=== PATIENT | female | born 2000 | race African-American/Black ===

== ENCOUNTER 2020-06-22 18:28 | Emergency (ER) | payer BC, MEDICAID ==
[~2020-06-22] VITALS: Ht 170.2 cm; Wt 101.7 kg
[~2020-06-22 18:28] MED LIST: AMOX250S5 PO; AMPH20CA5 PO; CEFD300C3 PO; DEXAINTSOL PO; DEXT10TA9 PO; HYDR473S50 PO; POLY17PO6 PO; PRM5C60 TOP; SODI500S4 PO; TETRACAINESUCKERS MT
--- NOTE | 2020-06-22 19:20 | ED Psychosocial ---
General Chief Complaint: Psych/Social Disorder Stated Complaint: DEPRESSION Nursing Triage Note: PT AMB TO TRIAGE WITH COMPLAINT OF MOOD SWINGS AND DEPRESSIVE EPISODES. STATES IS CONCERNED MEDICATION IS CAUSING EPISODES. STATES QUIT TAKING AN ANTIDEPRESSANT IN JANUARY. STATES CALLED NEURO TODAY AFTER HAVING A DEPRESSIVE EPISODE AND CRYING UNCONTROLLABLY. Source: patient (SOMEWHAT VAGUE HISTORIAN) History of Present Illness Date Seen by Provider: Jun 22, 2020 Time Seen by Provider: 19:00 Initial Comments PT ARRIVES VIA POV FROM HOME--LIVES HERE WITH MOM STATES "MY DR TOLD ME TO COME HERE" --STATES SHE CALLED HER NEUROLOGIST AT , DR. CHRISTIAN FARMER, TODAY "AND SHE TOLD ME SHE COULDN'T DO ANYTHING OVER THE PHONE AND I NEEDED TO COME HERE" --STATES SHE SEES HER FOR NARCOLEPSY--PRESCRIBED TRAZADONE, ADDERALL AND VENLAFAXINE FOR IT. C/O ONGOING DEPRESSION FOR SEVERAL MONTHS--SYMPTOMS ARE NO DIFFERENT TODAY IN ANY WAY, AND HAS NEVER BEEN SEEN BY MENTAL HEALTH STATES "I CRY OUT OF NO WHERE AND I DON'T KNOW WHY" STATES "SOME TIME LAST MONTH I TOOK SOME PILLS--I DON'T KNOW WHAT THEY WERE --MAYBE IBUPROFEN-7 OR 8 OF THEM BUT I THREW THEM ALL UP--II THINK MAYBE I TRIED TO OVERDOSE" --STATES SHE HAS OCCASIONALLY HAD THOUGHTS OF HARMING HERSELF, BUT DOES NOT FEEL THAT WAY TODAY--THOSE THOUGHTS COME AND GO HAS NOT TRIED AT ANY OTHER TIME TO HARM HERSELF PCP: MARIAJOSE, ALSO IS A [employer] STUDENT Allergies and Home Medications Allergies Coded Allergies: No Known Drug Allergies (Unverified , 04/21/09) Home Medications Dextroamphetamine/Amphetamine 20 Mg Cap.er.24h, 20 MG PO DAILY, (Reported) Dextroamphetamine/Amphetamine 10 Mg Tablet, 10 MG PO for SLEEP, (Reported) TO KEEP FROM SLEEPING DURING DAYTIME Polyethylene Glycol 3350 17 Gm Powd.pack, 17 GM PO for CONSTIPATION, (Reported) Sodium Oxybate 500 Mg/1 Ml Solution, 3.5 MG PO HS, (Reported) MIX WITH 60ML OF WATER Sodium Oxybate 500 Mg/1 Ml Solution, 5.5 MG PO UD, (Reported) Review of Systems Constitutional: no symptoms reported EENTM: no symptoms reported Respiratory: no symptoms reported Cardiovascular: no symptoms reported Gastrointestinal: no symptoms reported Genitourinary: no symptoms reported : No LMP: Jun 21, 2020 Control/STD Prophylaxis: None Musculoskeletal: no symptoms reported Skin: no symptoms reported Psychiatric/Neurological: See HPI Past Cdgbber-Aeptjp-Awwulp Hx Past Med/Social Hx: Reviewed and Corrections made Patient Social History Alcohol Use: Denies Use Recreational Drug Use: No Smoking Status: Never a Smoker Recent Foreign Travel: No Contact w/Someone Who Travel: No Recent Infectious Disease Expo: No Recent Hopitalizations: No Immunizations Up To Date Tetanus Booster (TDap): Unknown Date of Influenza Vaccine: Jun 17, 2015 Seasonal Allergies Seasonal Allergies: No Past Medical History Surgeries: Yes Adenoidectomy, Tonsillectomy Respiratory: Yes (NARCOLEPSY) Sleep Apnea Cardiac: No Neurological: Yes (NARCOLEPSY) Reproductive Disorders: No Sexually Transmitted Disease: No Genitourinary: No Gastrointestinal: Yes Chronic Constipation Musculoskeletal: No Endocrine: No HEENT: Yes (S/P TONSILLECTOMY) Tonsilitis Cancer: No Psychosocial: Yes Sleep Difficulties, Depression Integumentary: No Blood Disorders: No Adverse Reaction/Blood Tranf: No Family Medical History Asthma G8 SISTER G8 SISTER No Pertinent Family Hx Physical Exam Vital Signs - First Documented 06/22/20 18:36 Temp 37.0 Pulse 90 Resp 17 B/P (MAP) 112/71 (85) Pulse Ox 98 O2 Delivery Room Air Capillary Refill : Less Than 3 Seconds Height, Weight, BMI Height: 5'8.00" Weight: 173lbs. 0.0oz. [id number]; 35.00 BMI Method:Stated General Appearance: WD/WN, no apparent distress, other (SMILING, DOES NOT APPEAR TO BE IN ANY DISTRESS) HEENT: PERRL/EOMI Neck: normal inspection Respiratory: normal breath sounds, no respiratory distress, no accessory muscle use Cardiovascular: regular rate, rhythm, no murmur Gastrointestinal: non tender, soft Extremities: normal inspection Neurologic/Psychiatric: manager food II-XII nml as tested, no motor/sensory deficits, alert, normal mood/affect, oriented x 3 Appearance/Memory: appropriate appearance, appropriate insight, neat, no memory impairment Behavior/Eye Contact: cooperative, good eye contact, normal speech Thoughts/Hallucinations: normal thought pattern, no apparent hallucination, other (NO SUICIDAL OR HOMICIDAL THOUGHTS AT THIS TIME) Skin: normal color, warm/dry Progress/Results/Core Measures Results/Orders Lab Results Laboratory Tests Test 06/22/20 19:25 06/22/20 20:24 Range/Units White Blood Count 10.8 4.3-11.0 10^3/uL Red Blood Count 5.06 4.35-5.85 10^6/uL Hemoglobin 11.7 11.5-16.0 G/DL Hematocrit 37 35-52 % Mean Corpuscular Volume 74 L 80-99 FL Mean Corpuscular Hemoglobin 23 L 25-34 PG Mean Corpuscular Hemoglobin Concent 31 L 32-36 G/DL Red Cell Distribution Width 14.7 H 10.0-14.5 % Platelet Count 356 130-400 10^3/uL Mean Platelet Volume 11.1 H 7.4-10.4 FL Neutrophils (%) (Auto) 74 42-75 % Lymphocytes (%) (Auto) 19 12-44 % Monocytes (%) (Auto) 5 0-12 % Eosinophils (%) (Auto) 1 0-10 % Basophils (%) (Auto) 0 0-10 % Neutrophils # (Auto) 8.0 H 1.8-7.8 X 10^3 Lymphocytes # (Auto) 2.1 1.0-4.0 X 10^3 Monocytes # (Auto) 0.6 0.0-1.0 X 10^3 Eosinophils # (Auto) 0.1 0.0-0.3 10^3/uL Basophils # (Auto) 0.0 0.0-0.1 10^3/uL Sodium Level 139 135-145 MMOL/L Potassium Level 3.5 L 3.6-5.0 MMOL/L Chloride Level 105 98-107 MMOL/L Carbon Dioxide Level 23 21-32 MMOL/L Anion Gap 11 5-14 MMOL/L Blood Urea Nitrogen 7 7-18 MG/DL Creatinine 0.94 0.60-1.30 MG/DL Estimat Glomerular Filtration Rate > 60 BUN/Creatinine Ratio 7 Glucose Level 73 70-105 MG/DL Calcium Level 9.8 8.5-10.1 MG/DL Corrected Calcium 8.5-10.1 MG/DL Total Bilirubin 0.5 0.1-1.0 MG/DL Aspartate Amino Transf (AST/SGOT) 17 5-34 U/L Alanine Aminotransferase (ALT/SGPT) 11 0-55 U/L Alkaline Phosphatase 65 40-136 U/L Total Protein 7.9 6.4-8.2 GM/DL Albumin 4.6 H 3.2-4.5 GM/DL TSH [place] Testing 3.90 0.35-4.94 UIU/ML Salicylates Level < 5.0 L 5.0-20.0 MG/DL Acetaminophen Level < 10 L 10-30 UG/ML Serum Alcohol < 10 <10 MG/DL Urine Color YELLOW Urine Clarity CLEAR Urine pH 6.0 5-9 Urine Specific Tye 1.015 L 1.016-1.022 Urine Protein NEGATIVE NEGATIVE Urine Glucose (UA) NEGATIVE NEGATIVE Urine Ketones NEGATIVE NEGATIVE Urine Nitrite NEGATIVE NEGATIVE Urine Bilirubin NEGATIVE NEGATIVE Urine Urobilinogen 0.2 < = 1.0 MG/DL Urine Leukocyte Esterase NEGATIVE NEGATIVE Urine RBC (Auto) 3+ H NEGATIVE Urine RBC 50-100 H /HPF Urine WBC 0-2 /HPF Urine Squamous Epithelial Cells 2-5 /HPF Urine Crystals NONE /LPF Urine Bacteria NEGATIVE /HPF Urine Casts NONE /LPF Urine Mucus NEGATIVE /LPF Urine Culture Indicated NO Urine Test NEGATIVE NEGATIVE Urine Opiates Screen NEGATIVE NEGATIVE Urine Oxycodone Screen NEGATIVE NEGATIVE Urine Methadone Screen NEGATIVE NEGATIVE Urine Propoxyphene Screen NEGATIVE NEGATIVE Urine Barbiturates Screen NEGATIVE NEGATIVE Ur Tricyclic Antidepressants Screen NEGATIVE NEGATIVE Urine Phencyclidine Screen NEGATIVE NEGATIVE Urine Amphetamines Screen POSITIVE H NEGATIVE Urine Methamphetamines Screen NEGATIVE NEGATIVE Urine Benzodiazepines Screen NEGATIVE NEGATIVE Urine Cocaine Screen NEGATIVE NEGATIVE Urine Cannabinoids Screen NEGATIVE NEGATIVE My Orders Orders - ISA ELENA DO Urinalysis (06/22/20 19:12) Thyroid Analyzer (06/22/20 19:12) Drug Screen Stat (Urine) (06/22/20 19:12) Cbc With Automated Diff (06/22/20 19:12) Comprehensive Metabolic Panel (06/22/20 19:12) Alcohol (06/22/20 19:12) Acetaminophen (06/22/20 19:12) Salicylate (06/22/20 19:12) Ekg Tracing (06/22/20 19:12) Hcg,Qualitative Urine (06/22/20 19:12) Vital Signs/I&O 06/22/20 18:36 Temp 37.0 Pulse 90 Resp 17 B/P (MAP) 112/71 (85) Pulse Ox 98 O2 Delivery Room Air Blood Pressure Mean: 85 Departure Impression Primary Impression: Depression Disposition: 01 HOME, SELF-CARE Condition: Stable Departure-Patient Inst. Referrals: CALEB PERRY MD [facility] [place] Instructions: Depression, Adult (DC) Add. Discharge Instructions: CONTINUE YOUR MEDICATIONS PRESCRIBED FOLLOW UP WITH MENTAL HEALTH PROVIDER OF CHOICE--[facility], [facility] [place] [facility]--CALL ON TUESDAY MORNING TO SCHEDULE A PPOINTMENT All discharge instructions reviewed with patient and/or family. Voiced understanding. ISA ELENA DO Jun 22, 2020 19:20
[2020-06-22 19:35] LABS: BASOPHILS % (AUTO) 0 % (0-10); EOSINOPHILS # (AUTO) 0.1 10^3/uL (0.0-0.3); EOSINOPHILS % (AUTO) 1 % (0-10); HEMATOCRIT 37 % (35-52); HEMOGLOBIN 11.7 G/DL (11.5-16.0); LYMPHOCYTES # (AUTO) 2.1 X 10^3 (1.0-4.0); LYMPHOCYTES % (AUTO) 19 % (12-44); MEAN CORPUSCULAR HEMOGLOBIN 23 PG (25-34); MEAN CORPUSCULAR HGB CONC 31 G/DL (32-36); MEAN CORPUSCULAR VOLUME 74 FL (80-99); MEAN PLATELET VOLUME 11.1 FL (7.4-10.4); MONOCYTES # (AUTO) 0.6 X 10^3 (0.0-1.0); MONOCYTES % (AUTO) 5 % (0-12); NEUTROPHILS % (AUTO) 74 % (42-75); PLATELET COUNT 356 10^3/uL (130-400); WHITE BLOOD COUNT 10.8 10^3/uL (4.3-11.0)
[2020-06-22 19:51] LABS: ALANINE AMINOTRANSFERASE 11 U/L (0-55); ALBUMIN 4.6 GM/DL (3.2-4.5); ALKALINE PHOSPHATASE 65 U/L (40-136); BILIRUBIN,TOTAL 0.5 MG/DL (0.1-1.0); BUN/CREATININE RATIO 7; CALCIUM 9.8 MG/DL (8.5-10.1); CARBON DIOXIDE 23 MMOL/L (21-32); CHLORIDE 105 MMOL/L (98-107); CREATININE SERUM 0.94 MG/DL (0.60-1.30); GFR ESTIMATED > 60; GLUCOSE 73 MG/DL (70-105); POTASSIUM 3.5 MMOL/L (3.6-5.0); SALICYLATE < 5.0 MG/DL (5.0-20.0); SODIUM 139 MMOL/L (135-145); TOTAL PROTEIN 7.9 GM/DL (6.4-8.2)
[2020-06-22 19:57] LABS: ACETAMINOPHEN < 10 UG/ML (10-30)
[2020-06-22 20:34] LABS: BILIRUBIN,URINE NEGATIVE (NEGATIVE); CLARITY,URINE CLEAR; COLOR,URINE YELLOW; GLUCOSE, URINE (UA) NEGATIVE (NEGATIVE); KETONES,URINE NEGATIVE (NEGATIVE); LEUKOCYTE ESTERASE ,URINE NEGATIVE (NEGATIVE); NITRITE,URINE NEGATIVE (NEGATIVE); PROTEIN,URINE NEGATIVE (NEGATIVE)
[2020-06-22 20:44] LABS: HCG,QUALITATIVE URINE NEGATIVE (NEGATIVE)
[2020-06-22 20:46] LABS: BACTERIA,URINE NEGATIVE /HPF; RBC,URINE 50-100 /HPF; WBC,URINE 0-2 /HPF
[2020-06-22 20:50] LABS: AMPHETAMINE SCREEN, URINE POSITIVE (NEGATIVE); BARBITURATE SCREEN URINE NEGATIVE (NEGATIVE); BENZODIAZEPINES SCREEN URINE NEGATIVE (NEGATIVE); CANNABINOID SCREEN, URINE NEGATIVE (NEGATIVE); COCAINE SCREEN URINE NEGATIVE (NEGATIVE); METHADONE STAT NEGATIVE (NEGATIVE); METHAMPHETAMINE SCREEN URINE S NEGATIVE (NEGATIVE); OPIATE SCREEN URINE NEGATIVE (NEGATIVE); OXYCODONE STAT NEGATIVE (NEGATIVE); PROPOXYPHENE STAT NEGATIVE (NEGATIVE); TRICYCLIC ANTIDEPRESSANTS SCRE NEGATIVE (NEGATIVE)
[2020-06-22 21:07] VITALS: BP 155/76
== END 2020-06-22 21:07 | disposition home or self-care (01) ==
LOC: EDUNIT# 18:28 → ER 18:30
DX: F32.9 Major depressive disorder, single episode, unspecified (principal); G47.419 Narcolepsy without cataplexy
CPT/HCPCS: 80053; 80306; 81000; 84443; 84703; 85025; 93005; 99284; G0480 ×3; 36415; 80320; 80329

== ENCOUNTER 2022-01-29 17:52 | Emergency (ER) | payer SELFPAY ==
[~2022-01-29] VITALS: Ht 172 cm; Wt 119.7 kg
--- NOTE | 2022-01-29 18:27 | ED GU-Female ---
General Chief Complaint: - Reproductive Stated Complaint: HEAVY BLEEDING, SEVERE CRAMPS Source: patient Exam Limitations: no limitations History of Present Illness Date Seen by Provider: Jan 29, 2022 Time Seen by Provider: 18:20 Initial Comments Patient is a 21-year-old female who presents to the emergency department with a chief complaint of heavy vaginal bleeding, cramping. She states she has had this off and on over the course of the last 3 months. She is followed at [facility]. She has had multiple changes to her oral contraceptive pills over the last year. Most recently she was switched in September and when her bleeding became heavy and irregular they took her off her control. Babar ashby has had 1 visit back to the clinic with just a urinalysis performed as reported by her. She continues to have heavy bleeding. She occasionally takes dgrs-ugu-kfbqhka "menstrual relief" which contains acetaminophen. She states she has not been sexually active in many months. She denies any abnormal vaginal discharge. No burning with urination. No increased frequency or urgen cy. She denies blood in her stool. She has a history of narcolepsy but is not currently on medications for this. Denies any history of diabetes or thyroid disease. She states that she feels a little lightheaded and dizzy when she changes position. She does not smoke or drink. Currently has some suprapubic abdominal cramping. Has only had 1 prior pelvic exam and that has been about a year ago. Nothing abnormal reported. Family history of endometriosis. All other review of systems reviewed and negative except as stated. Timing/Duration: constant Severity/Quality: moderate, cramping Location: suprapubic Radiation: none Activities at Onset: none Prior Genitourinary Problems: similar symptoms Sexual [place] History: not active Associated Symptoms: abdominal pain Allergies and Home Medications Allergies Coded Allergies: No Known Drug Allergies (Unverified , 04/21/09) Patient Home Medication List Home Medication List Reviewed: Yes Dextroamphetamine/Amphetamine (Adderall Xr 20 mg Capsule) 20 Mg Cap.er.24h, 20 MG PO DAILY, (Reported) Entered as Reported by: ERIC FRANZ on 07/04/16 09 Dextroamphetamine/Amphetamine (Adderall 10 mg Tablet) 10 Mg Tablet, 10 MG PO for SLEEP, (Reported) Entered as Reported by: ERIC FRANZ on 07/04/16910 Naproxen (Naprosyn) 500 Mg Tablet, 500 MG PO BID Prescribed by: VEDA WATTS on 01/29/221922 Polyethylene Glycol 3350 (Miralax) 17 Gm Powd.pack, 17 GM PO for CONSTIPATION, (Reported) Entered as Reported by: ERIC FRANZ on 07/04/16910 Sodium Oxybate (Xyrem) 500 Mg/1 Ml Solution, 3.5 MG PO HS, (Reported) Entered as Reported by: ERIC FRANZ on 07/04/16910 Sodium Oxybate (Xyrem) 500 Mg/1 Ml Solution, 5.5 MG PO UD, (Reported) Entered as Reported by: ERIC FRANZ on 07/04/16910 Review of Systems Review of Systems Constitutional: see HPI EENTM: no symptoms reported Respiratory: no symptoms reported Gastrointestinal: abdominal pain Genitourinary: other (vaginal bleeding) : No Musculoskeletal: no symptoms reported Skin: no symptoms reported Psychiatric/Neurological: Headache, Other (dizziness, lightheaded) All Other Systemes Reviewed Negative Unless Noted: Yes Past Iwlmfbm-Uddhtu-Ibnsio Hx Patient Social History Tobacco Use?: No Substance use?: No Alcohol Use?: No Pt feels they are or have been: No Immunizations Up To Date Tetanus Booster (TDap): Unknown Seasonal Allergies Seasonal Allergies: No Past Medical History Surgery/Hospitalization HX: PMH: NARCOLEPSY Surgeries: Yes Adenoidectomy, Tonsillectomy Respiratory: Yes (NARCOLEPSY) Sleep Apnea Cardiac: No Neurological: Yes (NARCOLEPSY) Reproductive Disorders: No Sexually Transmitted Disease: No Genitourinary: No Gastrointestinal: Yes Chronic Constipation Musculoskeletal: No Endocrine: No HEENT: Yes (S/P TONSILLECTOMY) Tonsilitis Cancer: No Psychosocial: Yes Sleep Difficulties, Depression Integumentary: No Blood Disorders: No Adverse Reaction/Blood Tranf: No Family Medical History Asthma G8 SISTER G8 SISTER No Pertinent Family Hx Physical Exam Vital Signs Vital Signs - First Documented 01/29/22 18:13 Temp 36.5 Pulse 102 Resp 18 B/P (MAP) 131/73 (92) Pulse Ox 98 Capillary Refill : Height, Weight, BMI Height: 5'8.00" Weight: 173lbs. 0.0oz. [id number]; 35.00 BMI Method:Stated General Appearance: WD/WN, no apparent distress HEENT: PERRL/EOMI, normal ENT inspection Cardiovascular: regular rate, rhythm Respiratory: lungs clear, normal breath sounds, no respiratory distress, no accessory muscle use Gastrointestinal: normal bowel sounds, soft, tenderness (mild suprapubic tenderness) Extremities: normal range of motion, normal inspection Neurologic/Psychiatric: alert, normal mood/affect, oriented x 3 Skin: normal color, warm/dry Progress/Results/Core Measures Suspected Sepsis SIRS Temperature: Pulse: Respiratory Rate: Laboratory Tests 01/29/22 18:38: White Blood Count 9.0 Blood Pressure / Mean: Laboratory Tests 01/29/22 18:38: Platelet Count 358 Results/Orders Lab Results Laboratory Tests Test 01/29/22 18:37 01/29/22 18:38 Range/Units Glucometer 92 70-110 MG/DL White Blood Count 9.0 4.3-11.0 10^3/uL Red Blood Count 4.69 3.80-5.11 10^6/uL Hemoglobin 10.2 L 11.5-16.0 g/dL Hematocrit 35 35-52 % Mean Corpuscular Volume 74 L 80-99 fL Mean Corpuscular Hemoglobin 22 L 25-34 pg Mean Corpuscular Hemoglobin Concent 29 L 32-36 g/dL Red Cell Distribution Width 16.8 H 10.0-14.5 % Platelet Count 358 130-400 10^3/uL Mean Platelet Volume 10.2 9.0-12.2 fL Immature Granulocyte % (Auto) 0 % Neutrophils (%) (Auto) 64 42-75 % Lymphocytes (%) (Auto) 27 12-44 % Monocytes (%) (Auto) 6 0-12 % Eosinophils (%) (Auto) 2 0-10 % Basophils (%) (Auto) 1 0-10 % Neutrophils # (Auto) 5.8 1.8-7.8 10^3/uL Lymphocytes # (Auto) 2.4 1.0-4.0 10^3/uL Monocytes # (Auto) 0.6 0.0-1.0 10^3/uL Eosinophils # (Auto) 0.2 0.0-0.3 10^3/uL Basophils # (Auto) 0.1 0.0-0.1 10^3/uL Immature Granulocyte # (Auto) 0.0 0.0-0.1 10^3/uL My Orders Orders - VEDA WATTS MD Cbc With Automated Diff (01/29/22 18:36) Accucheck Stat ONCE (01/29/22 18:36) Naproxen Tablet (Naprosyn Tablet) (01/29/22 19:32) Vital Signs/I&O 01/29/22 18:13 Temp 36.5 Pulse 102 Resp 18 B/P (MAP) 131/73 (92) Pulse Ox 98 Capillary Refill : Progress Note : Time: 19:39 Progress Note Patient reevaluated after CBC and Accu-Chek. Her hemoglobin is slightly low at 10. We talked about this and the need possibly for some iron supplementation. She has been unable to produce a urine without any significant complaints for urinary tract infection I think it is okay to wait and have her repeat this in the clinic. She is adamant that she is not sexually active therefore I do not think a test is necessary at this time. I told her that I would go ahead and start her on some naproxen. She needs to be on an iron supplement. She is comfortable following up with [facility]. We talked about return precautions, she verbalized understanding. All questions are sought and answered. Departure Impression Primary Impression: Dysfunctional uterine bleeding Disposition: HOME, SELF-CARE Condition: Stable Departure-Patient Inst. Decision time for Depature: 17:21 Referrals: [facility]/JOSE LUIS NO,LOCAL PHYSICIAN (PCP) Primary Care Physician Patient Instructions: Heavy Periods ED Add. Discharge Instructions: Drink plenty of fluids to stay well-hydrated. You can look for an lifu-vyl-nthbyrh iron supplement called "Vitron C"; this contains vitamin C as well as iron. It does not cause like other iron supplements May. Take the naproxen twice daily with food. This should slow down your bleeding and also significantly help with cramping. Call Tuesday for a follow-up with [facility]. Return to the emergency department for any passing out spells, heavy bleeding with increasing abdominal pain, fever or other emergent concerning symptoms Scripts Naproxen (Naprosyn) 500 Mg Tablet 500 MG PO BID, #30 TAB 0 Refills take with food Prov: VEDA WATTS MD 01/29/22 VEDA WATTS MD Jan 29, 2022 18:26
[2022-01-29 18:46] LABS: BASOPHILS # (AUTO) 0.1 10^3/uL (0.0-0.1); BASOPHILS % (AUTO) 1 % (0-10); EOSINOPHILS # (AUTO) 0.2 10^3/uL (0.0-0.3); EOSINOPHILS % (AUTO) 2 % (0-10); HEMATOCRIT 35 % (35-52); HEMOGLOBIN 10.2 g/dL (11.5-16.0); LYMPHOCYTES # (AUTO) 2.4 10^3/uL (1.0-4.0); LYMPHOCYTES % (AUTO) 27 % (12-44); MEAN CORPUSCULAR HEMOGLOBIN 22 pg (25-34); MEAN CORPUSCULAR HGB CONC 29 g/dL (32-36); MEAN CORPUSCULAR VOLUME 74 fL (80-99); MEAN PLATELET VOLUME 10.2 fL (9.0-12.2); MONOCYTES # (AUTO) 0.6 10^3/uL (0.0-1.0); MONOCYTES % (AUTO) 6 % (0-12); NEUTROPHILS # (AUTO) 5.8 10^3/uL (1.8-7.8); NEUTROPHILS % (AUTO) 64 % (42-75); PLATELET COUNT 358 10^3/uL (130-400)
[2022-01-29] MEDS ORDERED: NAPR-1071 PO (19:23)
[2022-01-29] MEDS ORDERED: NAPROXEN 250 MG (NAPROSYN) TABLET PO STA (19:32)
[2022-01-29 19:45] VITALS: BP 127/78
== END 2022-01-29 19:47 | disposition home or self-care (01) ==
LOC: EDUNIT# 17:52 → ER 17:56
DX: N93.8 Other specified abnormal uterine and vaginal bleeding (principal)
CPT/HCPCS: 36415; 82947; 85025

== ENCOUNTER → 2022-08-17 | Outpatient (CLI) | payer OTHER ==
[~2022-08-17] MED LIST changes: +NAPR-1071 PO
== END ==
LOC: LAB 15:26
DX: G47.411 Narcolepsy with cataplexy (principal); F51.04 Psychophysiologic insomnia
CPT/HCPCS: 36415; 83735

== ENCOUNTER 2022-08-22 21:09 | Emergency (ER) | payer OTHER ==
--- NOTE | 2022-08-22 22:58 | ED Chest Pain ---
General Chief Complaint: Chest Wall Stated Complaint: CHEST PAIN Nursing Triage Note: PT ARRIVAL TO ER VIA PRIVATE VEHICLE WITH COMPLAINT OF INTERMITTENT CHEST PAIN X2 WEEKS. PAIN IS A SHARP PAIN WHEN PRESENT. PAIN AT WORST 8/10. PAIN CURRENTLY 3/10. PT DENIES NAUSA, VOMITING, DIAPHORESIS WITH PAIN. PAIN IS WORSE WITH PALPATION AND MOVEMENT. History of Present Illness Date Seen by Provider: Aug 22, 2022 Time Seen by Provider: 22:45 Initial Comments Patient is a 22-year-old female who presents to the emergency department with approximately 2 weeks of central chest pain. She states the pain seemed to have worsened over the last 24 to 48 hours prompting presentation to the emergency department. Patient states the pain is worse with certain positions and the area is tender to palpation. She states she feels that she cannot get a full breath but denies any diaphoresis or dependent edema. Denies any history of smoking. Denies any history of cardiopulmonary disease. States she is c urrently on her menses. Allergies and Home Medications Allergies Coded Allergies: No Known Drug Allergies (Unverified , 04/21/09) Patient Home Medication List Home Medication List Reviewed: Yes Dextroamphetamine/Amphetamine (Adderall Xr 20 mg Capsule) 20 Mg Cap.er.24h, 20 MG PO DAILY, (Reported) Entered as Reported by: ERIC FRANZ on 07/04/16910 Dextroamphetamine/Amphetamine (Adderall 10 mg Tablet) 10 Mg Tablet, 10 MG PO for SLEEP, (Reported) Entered as Reported by: ERIC FRANZ on 07/04/16910 Naproxen (Naprosyn) 500 Mg Tablet, 500 MG PO BID Prescribed by: VEDA WATTS on 01/29/221922 Polyethylene Glycol 3350 (Miralax) 17 Gm Powd.pack, 17 GM PO for CONSTIPATION, (Reported) Entered as Reported by: ERIC FRANZ on 07/04/16910 Sodium Oxybate (Xyrem) 500 Mg/1 Ml Solution, 3.5 MG PO HS, (Reported) Entered as Reported by: ERIC FRANZ on 07/04/16910 Sodium Oxybate (Xyrem) 500 Mg/1 Ml Solution, 5.5 MG PO UD, (Reported) Entered as Reported by: ERIC FRANZ on 07/04/16910 Review of Systems Review of Systems Constitutional: no symptoms reported EENTM: No Symptoms Reported Respiratory: See HPI Cardiovascular: See HPI Gastrointestinal: No Symptoms Reported Genitourinary: No Symptoms Reported Musculoskeletal: no symptoms reported Skin: no symptoms reported Psychiatric/Neurological: No Symptoms Reported Past Rjfuvfg-Jxkvpj-Eyfkar Hx Patient Social History Tobacco Use?: No Use of E-Cig and/or Vaping dev: No Substance use?: No Alcohol Use?: No Pt feels they are or have been: No Immunizations Up To Date Tetanus Booster (TDap): Unknown Influenza Vaccine Up-to-Date: No; Not Current First/Initial COVID19 Vaccinat: 11/06 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: [employer] Seasonal Allergies Seasonal Allergies: No Past Medical History Surgery/Hospitalization HX: PMH: NARCOLEPSY Surgeries: Yes Adenoidectomy, Tonsillectomy Respiratory: Yes (NARCOLEPSY) Sleep Apnea Cardiac: No Neurological: Yes (NARCOLEPSY) Reproductive Disorders: No Sexually Transmitted Disease: No Genitourinary: No Gastrointestinal: Yes Chronic Constipation Musculoskeletal: No Endocrine: No HEENT: Yes (S/P TONSILLECTOMY) Tonsilitis Cancer: No Psychosocial: Yes Sleep Difficulties, Depression Integumentary: No Blood Disorders: No Adverse Reaction/Blood Tranf: No Family Medical History Asthma G8 SISTER G8 SISTER No Pertinent Family Hx Physical Exam Vital Signs Vital Signs - First Documented 08/22/22 21:48 Temp 36.6 Pulse 95 Resp 18 B/P (MAP) 139/95 (110) Pulse Ox 98 O2 Delivery Room Air Capillary Refill : Less Than 3 Seconds Height, Weight, BMI Height: 5'8.00" Weight: 173lbs. 0.0oz. 78.793229pw; 40.00 BMI Method:Stated General Appearance: No Apparent Distress, WD/WN HEENT: PERRL/EOMI, TMs Normal, Normal ENT Inspection, Pharynx Normal Neck: Full Range of Motion, Normal Inspection Respiratory: Lungs Clear, Normal Breath Sounds, No Accessory Muscle Use Cardiovascular: Regular Rate, Rhythm Extremity: Normal Capillary Refill, Normal Inspection Neurologic/Psychiatric: Alert, Oriented x3, No Motor/Sensory Deficits, Normal Mood/Affect Skin: Normal Color, Warm/Dry Other comments Right costochondral cartilage tenderness to palpation noted Progress/Results/Core Measures Results/Orders My Orders Orders - ADAN CALABRESE APRN Ekg Tracing (08/22/22 22:40) Chest 1 View, Ap/Pa Only (08/22/22 22:44) Ibuprofen Tablet (Motrin Tablet) (08/22/22 23:30) Medications Given in ED Current Medications Medications Dose Ordered Sig/Farhana Route Start Time Stop Time Status Last Admin Dose Admin Ibuprofen 600 mg ONCE ONCE PO 08/22/22 23:30 08/22/22 23:31 DC 08/22/22 23:52 600 MG Vital Signs/I&O 08/22/22 21:48 Temp 36.6 Pulse 95 Resp 18 B/P (MAP) 139/95 (110) Pulse Ox 98 O2 Delivery Room Air Blood Pressure Mean: 110 Progress Progress Note : Progress Note Patient is nontoxic and well-hydrated on exam. No adventitious lung sounds or increased work of breathing noted. Vital signs reassuring. Patient is awake alert and oriented. She answers all questions appropriately. EKG without acute ischemic change or arrhythmia. Chest x-ray acutely negative on my wet read. Will discharge home with recommendations for supportive care and follow-up with PCP. Return precautions for urgent symptomology discussed. Patient verbalized understanding. EKG : EKG Time: 22:47 Rate: 89 Rhythm: Normal Sinus Intervals: Normal ECG Impression: Normal Departure Impression Primary Impression: Costochondritis Disposition: 01 HOME, SELF-CARE Condition: Stable Departure-Patient Inst. Decision time for Depature: 23:50 Referrals: NO,LOCAL PHYSICIAN (PCP/Family) Primary Care Physician Patient Instructions: Costochondritis (DC) Scripts Ibuprofen (Ibuprofen) 800 Mg Tablet 800 MG PO Q8H PRN for PAIN-MILD for 5 Days, #15 TAB 0 Refills Prov: ADAN CALABRESE APRN 08/22/22 ADAN CALABRESE APRN Aug 22, 2022 22:58
[2022-08-22] MEDS ORDERED: IBUPROFEN 600 MG (MOTRIN) TAB PO ONE (23:30)
[2022-08-22] MEDS ORDERED: IBUP-1780 PO (23:55)
[2022-08-22 23:58] VITALS: BP 121/90
--- NOTE | 2022-08-23 06:22 | Diagnostic Imaging Report ---
EXAMINATION: Chest 1 view HISTORY: chest pain COMPARISON: None available. FINDINGS: Heart size and pulmonary vasculature are normal. The lungs are clear without consolidation, pleural effusion, or pneumothorax. The osseous structures are intact. IMPRESSION: 1. No acute radiographic abnormality in the chest. Dictated by: Dictated on workstation # [id number]
== END 2022-08-23 00:14 | disposition home or self-care (01) ==
LOC: EDUNIT# 21:09 → ER 21:11
DX: M94.0 Chondrocostal junction syndrome [Tietze] (principal); Z28.311 Partially vaccinated for COVID-19
CPT/HCPCS: 71045; 93005

== ENCOUNTER 2023-01-05 18:11 | Emergency (ER) | payer OTHER ==
[~2023-01-05] VITALS: Ht 173 cm; Wt 134.3 kg
[~2023-01-05 18:11] MED LIST changes: +IBUP-1780 PO
[2023-01-05 18:41] LABS: BASOPHILS # (AUTO) 0.1 10^3/uL (0.0-0.1); BASOPHILS % (AUTO) 1 % (0-10); EOSINOPHILS # (AUTO) 0.3 10^3/uL (0.0-0.3); EOSINOPHILS % (AUTO) 3 % (0-10); HEMATOCRIT 31 % (35-52); LYMPHOCYTES # (AUTO) 2.5 10^3/uL (1.0-4.0); LYMPHOCYTES % (AUTO) 26 % (12-44); MEAN CORPUSCULAR HEMOGLOBIN 20 pg (25-34); MEAN CORPUSCULAR HGB CONC 29 g/dL (32-36); MEAN CORPUSCULAR VOLUME 69 fL (80-99); MEAN PLATELET VOLUME 10.1 fL (9.0-12.2); MONOCYTES # (AUTO) 0.7 10^3/uL (0.0-1.0); MONOCYTES % (AUTO) 7 % (0-12); NEUTROPHILS # (AUTO) 6.1 10^3/uL (1.8-7.8); NEUTROPHILS % (AUTO) 63 % (42-75); PLATELET COUNT 378 10^3/uL (130-400); WHITE BLOOD COUNT 9.7 10^3/uL (4.3-11.0)
--- NOTE | 2023-01-05 18:50 | ED General ---
General Chief Complaint: General Problems/Pain Stated Complaint: ABNORMAL MENSTRUAL CYCLE Nursing Triage Note: Patient ambulatory to ER w c/o abnormal bleeding with large clots. Bleeding started Dec 02. Patient states regular period lasts about 5 days. Changing pad every hr. Patient states cramps are real bad. takes tylenol and ibuprofen for pain Source of Information: Patient Exam Limitations: No Limitations History of Present Illness Date Seen by Provider: Jan 05, 2023 Time Seen by Provider: 18:48 Initial Comments Patient is a 22-year-old female with a history of narcolepsy cataplexy, obstructive sleep apnea, abnormal menstrual cycles who presents ED with heavy vaginal bleeding. Symptoms started 3 weeks ago. Started with bright red blood. Started passing clots and now return to bright red blood. She states she goes through 8-10 pads a day. Heavier vaginal bleeding over the past 2 days. history of irregular menstrual cycle. She has been seen by [facility] and had a unremarkable ultrasound few months ago accordign to family. She states she is scheduled follow-up with a traveling nurse on January 18. She reports lower abdominal cramping that is intermittent but worse over the past 2 or 3 days. Denies of any urinary symptoms, vaginal discharge or concern for sexual transmitted infection. She denies fever, vomiting, diarrhea, current chest pain, shortness of breath, headache, dizziness. Patient denies history of hypothyroidism, PCOS, anticoagulant loose, blood disorder. Patient denies taking thing for pain. Has been on control in the past without much improvement. Patient denies dizziness, weakness, pale skin, short of breath Allergies and Home Medications Allergies Coded Allergies: No Known Drug Allergies (Unverified , 04/21/09) Patient Home Medication List Home Medication List Reviewed: Yes Dextroamphetamine/Amphetamine (Adderall Xr 20 mg Capsule) 20 Mg Cap.er.24h, 20 MG PO DAILY, (Reported) Entered as Reported by: ERIC FRANZ on 07/04/16 0911 Dextroamphetamine/Amphetamine (Adderall 10 mg Tablet) 10 Mg Tablet, 10 MG PO for SLEEP, (Reported) Entered as Reported by: ERIC FRANZ on 07/04/16 09 Ibuprofen (Ibuprofen) 800 Mg Tablet, 800 MG PO Q8H PRN for PAIN-MILD Prescribed by: Linden Menendez on 08/22/22 6266 Medroxyprogesterone Acetate (Medroxyprogesterone Acetate) 10 Mg Tablet, 10 MG PO DAILY Prescribed by: REEMA JIM on 01/05/232002 Metronidazole (Metronidazole) 500 Mg Tablet, 500 MG PO BID Prescribed by: REEMA JIM on 01/05/232036 Naproxen (Naprosyn) 500 Mg Tablet, 500 MG PO BID Prescribed by: VEDA WATTS on 01/29/221922 Polyethylene Glycol 3350 (Miralax) 17 Gm Powd.pack, 17 GM PO for CONSTIPATION, (Reported) Entered as Reported by: ERIC FRANZ on 07/04/16910 Sodium Oxybate (Xyrem) 500 Mg/1 Ml Solution, 3.5 MG PO HS, (Reported) Entered as Reported by: ERIC FRANZ on 07/04/16910 Sodium Oxybate (Xyrem) 500 Mg/1 Ml Solution, 5.5 MG PO UD, (Reported) Entered as Reported by: ERIC FRANZ on 07/04/16910 Review of Systems Review of Systems Constitutional: No chills, No diaphoresis, No fever, No malaise, No weakness Respiratory: No cough, No orthopnea, No short of breath Cardiovascular: No chest pain, No edema Gastrointestinal: abdominal pain; No diarrhea, No nausea, No vomiting Genitourinary: No decreased output, No discharge, No dysuria, No frequency; other (Vaginal discharge) Musculoskeletal: No back pain, No joint pain Skin: No change in color Past Ikhvdbk-Acmzzj-Qmloqc Hx Patient Social History Tobacco Use?: No Substance use?: No Alcohol Use?: No Immunizations Up To Date Tetanus Booster (TDap): Unknown First/Initial COVID19 Vaccinat: unknown COVID19 Vaccine [place]: Zuki Seasonal Allergies Seasonal Allergies: No Past Medical History Surgery/Hospitalization HX: PMH: NARCOLEPSY Surgeries: Yes Adenoidectomy, Tonsillectomy Respiratory: Yes (NARCOLEPSY) Sleep Apnea Cardiac: No Neurological: Yes (NARCOLEPSY) Reproductive Disorders: No Sexually Transmitted Disease: No Genitourinary: No Gastrointestinal: Yes Chronic Constipation Musculoskeletal: No Endocrine: No HEENT: Yes (S/P TONSILLECTOMY) Tonsilitis Cancer: No Psychosocial: Yes Sleep Difficulties, Depression Integumentary: No Blood Disorders: No Adverse Reaction/Blood Tranf: No Family Medical History Asthma G8 SISTER G8 SISTER No Pertinent Family Hx Physical Exam Vital Signs Vital Signs - First Documented 01/05/23 18:21 Temp 36.4 Pulse 91 Resp 20 B/P (MAP) 139/83 (101) O2 Delivery Room Air Capillary Refill : Less Than 3 Seconds Height, Weight, BMI Height: 5'8.00" Weight: 173lbs. 0.0oz. 78.380229py; 44.00 BMI Method:Stated General Appearance: No Apparent Distress, WD/WN Eyes: Bilateral Eye Normal Inspection, Bilateral Eye PERRL, Bilateral Eye EOMI HEENT: PERRL/EOMI, TMs Normal, Normal ENT Inspection, Pharynx Normal Neck: Full Range of Motion, Normal Inspection, Non Tender, Supple Respiratory: Chest Non Tender, Lungs Clear, Normal Breath Sounds, No Accessory Muscle Use, No Respiratory Distress Cardiovascular: Regular Rate, Rhythm, No Edema, No Gallop, No JVD Gastrointestinal: Normal Bowel Sounds, No Organomegaly, No Pulsatile Mass, Non Tender, Soft Back: Normal Inspection, No CVA Tenderness, No Vertebral Tenderness Extremity: Normal Capillary Refill, Normal Inspection, Normal Range of Motion Neurologic/Psychiatric: Alert, Oriented x3, No Motor/Sensory Deficits, Normal Mood/Affect, orchid hand II-XII Norm as Tested Skin: Normal Color, Warm/Dry Progress/Results/Core Measures Suspected Sepsis SIRS Temperature: Pulse: 91 Respiratory Rate: 20 Laboratory Tests 01/05/23 18:30: White Blood Count 9.7 Blood Pressure 139 /83 Mean: 101 Laboratory Tests 01/05/23 18:30: Creatinine 0.94, INR Comment 1.0, Platelet Count 378, Total Bilirubin 0.2 Results/Orders Lab Results Laboratory Tests Test 01/05/23 18:30 01/05/23 18:55 01/05/23 19:19 Range/Units White Blood Count 9.7 4.3-11.0 10^3/uL Red Blood Count 4.57 3.80-5.11 10^6/uL Hemoglobin 9.0 L 11.5-16.0 g/dL Hematocrit 31 L 35-52 % Mean Corpuscular Volume 69 L 80-99 fL Mean Corpuscular Hemoglobin 20 L 25-34 pg Mean Corpuscular Hemoglobin Concent 29 L 32-36 g/dL Red Cell Distribution Width 18.7 H 10.0-14.5 % Platelet Count 378 130-400 10^3/uL Mean Platelet Volume 10.1 9.0-12.2 fL Immature Granulocyte % (Auto) 1 % Neutrophils (%) (Auto) 63 42-75 % Lymphocytes (%) (Auto) 26 12-44 % Monocytes (%) (Auto) 7 0-12 % Eosinophils (%) (Auto) 3 0-10 % Basophils (%) (Auto) 1 0-10 % Neutrophils # (Auto) 6.1 1.8-7.8 10^3/uL Lymphocytes # (Auto) 2.5 1.0-4.0 10^3/uL Monocytes # (Auto) 0.7 0.0-1.0 10^3/uL Eosinophils # (Auto) 0.3 0.0-0.3 10^3/uL Basophils # (Auto) 0.1 0.0-0.1 10^3/uL Immature Granulocyte # (Auto) 0.1 0.0-0.1 10^3/uL Prothrombin Time 13.3 12.2-14.7 SEC INR Comment 1.0 0.8-1.4 Activated Partial Thromboplast Time 36 H 24-35 SEC Sodium Level 139 135-145 MMOL/L Potassium Level 3.6 3.6-5.0 MMOL/L Chloride Level 107 98-107 MMOL/L Carbon Dioxide Level 22 21-32 MMOL/L Anion Gap 10 5-14 MMOL/L Blood Urea Nitrogen 14 7-18 MG/DL Creatinine 0.94 0.60-1.30 MG/DL Estimat Glomerular Filtration Rate 88 BUN/Creatinine Ratio 15 Glucose Level 101 70-105 MG/DL Calcium Level 9.6 8.5-10.1 MG/DL Corrected Calcium 9.6 8.5-10.1 MG/DL Total Bilirubin 0.2 0.1-1.0 MG/DL Aspartate Amino Transf (AST/SGOT) 16 5-34 U/L Alanine Aminotransferase (ALT/SGPT) 14 0-55 U/L Alkaline Phosphatase 77 40-136 U/L Total Protein 7.4 6.4-8.2 GM/DL Albumin 4.0 3.2-4.5 GM/DL Thyroid Stimulating Hormone (TSH) 3.57 0.35-4.94 UIU/ML Urine Color YELLOW Urine Clarity CLOUDY Urine pH 6.0 5-9 Urine Specific [place] >=1.030 1.016-1.022 Urine Protein 1+ H NEGATIVE Urine Glucose (UA) NEGATIVE NEGATIVE Urine Ketones NEGATIVE NEGATIVE Urine Nitrite NEGATIVE NEGATIVE Urine Bilirubin NEGATIVE NEGATIVE Urine Urobilinogen 0.2 < = 1.0 MG/DL Urine Leukocyte Esterase NEGATIVE NEGATIVE Urine RBC (Auto) 3+ H NEGATIVE Urine RBC >100 H /HPF Urine WBC 2-5 /HPF Urine Squamous Epithelial Cells 5-10 /HPF Urine Crystals NONE /LPF Urine Bacteria TRACE /HPF Urine Casts NONE /LPF Urine Mucus MODERATE H /LPF Urine Culture Indicated NO Urine Test NEGATIVE NEGATIVE My Orders Orders - JOCELYN SMITH Cbc With Automated Diff (01/05/23 18:21) Comprehensive Metabolic Panel (01/05/23 18:21) Ua Culture If Indicated (01/05/23 18:21) Hcg,Qualitative Urine (01/05/23 18:21) Wet Prep (01/05/23 18:46) Neisseria Gonorrhea Swab (01/05/23 18:46) Chlamydia Trachomatis Swab (01/05/23 18:46) Partial Thromboplastin Time (01/05/23 18:51) Protime With Inr (01/05/23 18:51) Thyroid Stimulating Hormone (01/05/23 18:51) Vital Signs/I&O 01/05/23 01/05/23 18:21 20:46 Temp 36.4 Pulse 91 Resp 20 B/P (MAP) 139/83 (101) 118/80 O2 Delivery Room Air Capillary Refill : Less Than 3 Seconds Blood Pressure Mean: 101 Departure Communication (PCP) Reviewed previous ER visits, H&P, lab testing. Patient presents ED with heavy vaginal bleeding. She reports going through 10 pads daily. Symptoms over the past 3 weeks. Started with bright red blood and started having heavy clots with bright red blood today. Mild abdominal cramping. History of similar symptoms. Not currently sexually active or concern for sexual transmitted infection but would like a pelvic swab. Denies of any urinary symptoms. No history of previous abdominal surgery. Outpatient ultrasound performed 2 months ago at [facility] it was unremarkable. Not able to locate ultrasound no history of PCOS, thyroid disease, coagulopathy, hormone replacement therapy, anticoagulants, endometriosis, fibroids. Due to current complaint CBC, CMP, coags, TCS, urinalysis, pelvic swab for chlamydia and gonorrhea was ordered. Differential diagnosis of dysfunctional uterine bleeding, uterine fibroids, pelvic infection, UTI, PCOS, endometriosis. CBC showed normal white blood count with a hemoglobin of 9. History of iron deficiency and was recommended to take oral iron which she has not taken daily. Urinalysis was negative for infection negative for but did note hematuria. Wet mount was positive for clue cells but negative for trichomonas or vaginal yeast. She refused pelvic exam which I strongly recommended to have a further evaluation. She is scheduled follow-up with gynecology on January 18. Chemistry was otherwise unremarkable. Vital signs stable. She does not appear toxic. No abdominal tenderness on palpation. Discussed having no ultrasound during the evenings. Do warrant further evaluation with ultrasound however she states her ultrasound was unremarkable. No significant abdominal tenderness suggesting a surgical abdomen at this time. No rebound or guarding. CT scan of the abdomen pelvis was held at this time. Dysfunctional uterine bleeding. Recommend methyl progesterone 10 mg for 10 days. Recommend following up with gynecology. Will discharge with Wolfgang dorsey for bacterial vaginosis. No sexual intercourse at this time. If any worsening symptoms such as dizziness, lightheadedness, shortness of breath, heavier bleeding return back to ED. Impression Primary Impression: Dysfunctional uterine bleeding Disposition: HOME, SELF-CARE Condition: Stable Departure-Patient Inst. Decision time for Depature: 19:58 Referrals: KARI DESAI APRN (PCP/Family) Primary Care Physician Patient Instructions: IRREGULAR VAGINAL BLEEDING Add. Discharge Instructions: Recommend following up with gynecology for further evaluation. Continue wearing pads. If continue worsening symptoms, dizziness, lightheadedness to return back to ED. recommend continue with iron supplements All discharge instructions reviewed with patient and/or family. Voiced understanding. Scripts Metronidazole (Metronidazole) 500 Mg Tablet 500 MG PO BID for 7 Days, #14 TAB Prov: JOCELYN SMITH 01/05/23 Medroxyprogesterone Acetate (Medroxyprogesterone Acetate) 10 Mg Tablet 10 MG PO DAILY for 10 Days, #10 TAB Prov: JOCELYN SMITH 01/05/23 Work/School Note: Work Release Form Date Seen in the Emergency Department: Jan 05, 2023 Return to Work: Jan 08, 2023 JOCELYN SMITH Jan 05, 2023 18:50
[2023-01-05 19:00] LABS: BILIRUBIN,TOTAL 0.2 MG/DL (0.1-1.0); CALCIUM 9.6 MG/DL (8.5-10.1); CREATININE SERUM 0.94 MG/DL (0.60-1.30); POTASSIUM 3.6 MMOL/L (3.6-5.0); TOTAL PROTEIN 7.4 GM/DL (6.4-8.2)
[2023-01-05 19:32] LABS: PROTHROMBIN TIME PATIENT 13.3 SEC (12.2-14.7)
[2023-01-05 20:00] LABS: BILIRUBIN,URINE NEGATIVE (NEGATIVE); CLARITY,URINE CLOUDY; COLOR,URINE YELLOW; GLUCOSE, URINE (UA) NEGATIVE (NEGATIVE); KETONES,URINE NEGATIVE (NEGATIVE); LEUKOCYTE ESTERASE ,URINE NEGATIVE (NEGATIVE); NITRITE,URINE NEGATIVE (NEGATIVE); PROTEIN,URINE 1+ (NEGATIVE)
[2023-01-05] MEDS ORDERED: MEDR10TA9 PO (20:03)
[2023-01-05 20:21] LABS: BACTERIA,URINE TRACE /HPF; RBC,URINE >100 /HPF
[2023-01-05] MEDS ORDERED: METR-145 PO (20:37)
[2023-01-05 20:46] VITALS: BP 118/80
== END 2023-01-05 20:46 | disposition home or self-care (01) ==
LOC: EDUNIT# 18:11 → ER 18:13
DX: N93.8 Other specified abnormal uterine and vaginal bleeding (principal)
CPT/HCPCS: 36415; 80053; 81000; 84443; 84703; 85025; 85610; 85730; 87210; 87491; 87591

== ENCOUNTER 2023-08-26 08:43 | Emergency (ER) | payer OTHER ==
[~2023-08-26] VITALS: Ht 172.7 cm; Wt 134.2 kg
[~2023-08-26 08:43] MED LIST changes: +MEDR10TA9 PO; +METR-145 PO
[2023-08-26] MEDS ORDERED: RT-ALBUTEROL HFA 8.5 GM INHALER IH STA (09:57)
--- NOTE | 2023-08-26 10:04 | ED General ---
General Chief Complaint: Cough/Cold/Flu Symptoms Stated Complaint: COUGH | MUCUS Nursing Triage Note: PT AMB TO RM 10 WITH CC OF COUGH X 3 WEEKS. PT REPORTS THAT SHE HAS BEEN TAKING A MEDICATION PRESCRIBED BY [facility] AND HAS NOT HAD AN IMPROVEMENT IN SYMPTOMS. PT STATES THAT SHE HAD A TEMP OF 100.3 ON TUESDAY. Source of Information: Patient Exam Limitations: No Limitations History of Present Illness Date Seen by Provider: Aug 26, 2023 Time Seen by Provider: 09:04 Initial Comments This 23-year-old young lady presents to the emergency room with complaints of 3 weeks of cough. She was seen in the clinic and prescribed Tessalon Perles. A few days ago she reports coughing up blood with productive mucus. She had fever of 100.3 a few days ago as well. She is afebrile right now with no respiratory distress. She denies any history of asthma. Allergies and Home Medications Allergies Coded Allergies: No Known Drug Allergies (Unverified , 04/21/09) Patient Home Medication List Home Medication List Reviewed: Yes Azithromycin (Azithromycin) 250 Mg Tablet, 250 MG PO UD Prescribed by: ARJUN GONZALEZ on 08/26/23 1101 Dextroamphetamine/Amphetamine (Adderall Xr 20 mg Capsule) 20 Mg Cap.er.24h, 20 MG PO DAILY, (Reported) Entered as Reported by: ERIC FRANZ on 07/04/16 0911 Dextroamphetamine/Amphetamine (Adderall 10 mg Tablet) 10 Mg Tablet, 10 MG PO for SLEEP, (Reported) Entered as Reported by: ERIC FRANZ on 07/04/16 0911 Ibuprofen (Ibuprofen) 800 Mg Tablet, 800 MG PO Q8H PRN for PAIN-MILD Prescribed by: Linden Menendez on 08/22/222354 Medroxyprogesterone Acetate (Medroxyprogesterone Acetate) 10 Mg Tablet, 10 MG PO DAILY Prescribed by: REEMA JIM on 01/05/232002 Metronidazole (Metronidazole) 500 Mg Tablet, 500 MG PO BID Prescribed by: REEMA JIM on 01/05/232036 Naproxen (Naprosyn) 500 Mg Tablet, 500 MG PO BID Prescribed by: VEDA WATTS on 01/29/221922 Polyethylene Glycol 3350 (Miralax) 17 Gm Powd.pack, 17 GM PO for CONSTIPATION, (Reported) Entered as Reported by: ERIC FRANZ on 07/04/16910 Sodium Oxybate (Xyrem) 500 Mg/1 Ml Solution, 3.5 MG PO HS, (Reported) Entered as Reported by: ERIC FRANZ on 07/04/16910 Sodium Oxybate (Xyrem) 500 Mg/1 Ml Solution, 5.5 MG PO UD, (Reported) Entered as Reported by: ERIC FRANZ on 07/04/16910 Review of Systems Review of Systems Constitutional: see HPI EENTM: no symptoms reported Respiratory: see HPI Cardiovascular: no symptoms reported Gastrointestinal: no symptoms reported Genitourinary: no symptoms reported : No LMP: Aug 14, 2023 Musculoskeletal: no symptoms reported Skin: no symptoms reported Psychiatric/Neurological: No Symptoms Reported Hematologic/Lymphatic: No Symptoms Reported Immunological/Allergic: no symptoms reported Past Zkhcjwi-Lswamu-Xrludj Hx Patient Social History Tobacco Use?: No Substance use?: No Alcohol Use?: No Immunizations Up To Date Tetanus Booster (TDap): Unknown First/Initial COVID19 Vaccinat: unknown Second COVID19 Vaccination [place]: unknown Third COVID19 Vaccination Date: unknown Seasonal Allergies Seasonal Allergies: No Past Medical History Surgery/Hospitalization HX: PMH: NARCOLEPSY Surgeries: Yes Adenoidectomy, Tonsillectomy Respiratory: Yes (NARCOLEPSY) Pneumonia, Sleep Apnea Cardiac: No Neurological: Yes (NARCOLEPSY) Reproductive Disorders: No Sexually Transmitted Disease: No Genitourinary: No Gastrointestinal: Yes Chronic Constipation Musculoskeletal: No Endocrine: No HEENT: Yes (S/P TONSILLECTOMY) Tonsilitis Cancer: No Psychosocial: Yes Sleep Difficulties, Depression Integumentary: No Blood Disorders: No Adverse Reaction/Blood Tranf: No Family Medical History Asthma G8 SISTER G8 SISTER No Pertinent Family Hx Physical Exam Vital Signs Vital Signs - First Documented 08/26/23 09:04 Pulse 109 B/P (MAP) 124/96 (105) Pulse Ox 95 O2 Delivery Room Air Capillary Refill : Height, Weight, BMI Height: 5'8.00" Weight: 173lbs. 0.0oz. 78.374943qw; 44.00 BMI Method:Stated General Appearance: No Apparent Distress, WD/WN HEENT: PERRL/EOMI, TMs Normal, Normal ENT Inspection, Pharynx Normal Neck: Normal Inspection Respiratory: No Accessory Muscle Use, No Respiratory Distress, Wheezing (wheezing and cough with forced expirations) Extremity: Normal Inspection Neurologic/Psychiatric: Alert, Oriented x3, No Motor/Sensory Deficits, Normal Mood/Affect Skin: Normal Color, Warm/Dry Progress/Results/Core Measures Suspected Sepsis SIRS Temperature: Pulse: 109 Respiratory Rate: Blood Pressure 124 /96 Mean: 105 Results/Orders Lab Results Laboratory Tests Test 08/26/23 09:17 Range/Units Influenza Type A (RT-PCR) Not Detected Not Detecte Influenza Type B (RT-PCR) Not Detected Not Detecte SARS-CoV-2 RNA (RT-PCR) Not Detected Not Detecte My Orders Orders - ARJUN ANGUIANO MD Covid 19 Inhouse Test (08/26/23 09:04) Influenza A And B By Pcr (08/26/23 09:04) Albuterol Hfa Inhaler (Albuterol Hfa Inh (08/26/23 09:57) Chest Pa/Lat (2 View) (08/26/23 09:57) Vital Signs/I&O 08/26/23 08/26/23 08/26/23 09:04 10:24 11:07 Pulse 109 96 B/P (MAP) 124/96 (105) 126/83 Pulse Ox 95 95 O2 Delivery Room Air Room Air Capillary Refill : Blood Pressure Mean: 105 Progress Note #1: Time: 10:01 Progress Note Management of this case started at 0904 when chief complaint was reviewed and viral swabs were ordered. I discussed the triage with nursing staff. Patient was interviewed and examined at 0948. There was a delay in physical exam of this stable and comfortable patient due to urgent needs of other more critical patients in the ER at the time. She was found to have expiratory wheeze and cough on forced expiration. She is suspected of having acute bronchitis. Because she noted some blood in her sputum a few days ago, 2 view chest x-ray is also being obtained. test was not needed as patient insists she is not sexually active and her LMP was only 2 weeks ago. A trial of albuterol inhaler is being given. Progress Note #2: Progress Note Chest x-ray reviewed and interpreted by me revealed left lower lobe infiltrate consistent with pneumonia. This was confirmed by radiologist's report which was also reviewed as below. Albuterol inhaler did improve her wheezing some. Antibiotics were prescribed. See discharge instructions for further discussion. Swabs for flu and COVID were negative. Diagnostic Imaging Diagonstic Imaging: Xray Plain Films/CT/US/NM/MRI: chest Comments NAME: ANGELA GAMING MED REC#: [id number] PT STATUS: REG ER : 2000 PHYSICIAN: ARJUN ANGUIANO MD ADMIT DATE: 08/26/23/ER Draft Date of Exam:08/26/23 CHEST PA/LAT (2 VIEW) INDICATION: Cough. COMPARISON: 08/22/2022. TECHNIQUE: 2 radiographs of the chest dated 08/26/2023. FINDINGS: The cardiac silhouette is within normal limits in size. No significant pulmonary vascular congestion. New left basilar interstitial opacities. The right lung is clear. No significant pleural effusion. No pneumothorax. No acute osseous abnormality. IMPRESSION: New left basilar infiltrate or less likely atelectasis. Dictated on workstation # [id number] Dict: 08/26/23 1019 Trans: 08/26/23 1024 [id number] Interpreted by: GISELL DENNY MD Departure Impression Primary Impression: Left lower lobe pneumonia Additional Impression: Acute bronchitis Disposition: 01 HOME, SELF-CARE Condition: Stable Departure-Patient Inst. Referrals: KARI DESAI APRN (PCP/Family) Primary Care Physician Patient Instructions: Community-acquired pneumonia in adults, How to Use a Metered Dose Inhaler ED, How to Use a Spacer Add. Discharge Instructions: Start your antibiotic as soon as you pick it up today. Complete the entire course of antibiotics. Drink plenty of clear liquids to stay well-hydrated. Use your inhaler 1 to 4 puffs as needed for shortness of breath and uncontrolled coughing. Do not exceed more than 4 puffs in a 4-hour period of time. Please schedule follow-up appointment with your primary care provider. I suggest you have a repeat x-ray performed in a few weeks to ensure your pneumonia has cleared, especially since you have had multiple episodes of pneumonia. Please also ensure you are performing appropriate maintenance on your CPAP machine. It is important that the CPAP machine be cleaned and sterilized properly to avoid respiratory infections such as pneumonia. Please see your laundrette owner's manual or manufactures recommendations for cleaning. Return to care if you have worsening symptoms despite following these instructions. All discharge instructions reviewed with patient and/or family. Voiced understanding. Scripts Azithromycin (Azithromycin) 250 Mg Tablet 250 MG PO UD, #6 TAB TAKE 2 TABLETS ON DAY ONE THEN TAKE 1 TABLET DAILY FOR FOUR MORE DAYS Prov: ARJUN ANGUIANO MD 08/26/23 Work/School Note: Work Release Form Date Seen in the Emergency Department: Aug 26, 2023 Return to Work: Aug 27, 2023 Restrictions: Return-No Fever (24hrs), Return-No Vomiting(24hrs) Copy Copies To 1: [facility]/ARJUN HENDRICKSON MD Aug 26, 2023 10:04
--- NOTE | 2023-08-26 10:25 | Diagnostic Imaging Report ---
INDICATION: Cough. COMPARISON: 08/22/2022. TECHNIQUE: 2 radiographs of the chest dated 08/26/2023. FINDINGS: The cardiac silhouette is within normal limits in size. No significant pulmonary vascular congestion. New left basilar interstitial opacities. The right lung is clear. No significant pleural effusion. No pneumothorax. No acute osseous abnormality. IMPRESSION: New left basilar infiltrate or less likely atelectasis. Dictated by: Dictated on workstation # [id number]
[2023-08-26] MEDS ORDERED: AZIT250T12 PO (11:01)
[2023-08-26 11:07] VITALS: BP 126/83
== END 2023-08-26 11:12 | disposition home or self-care (01) ==
LOC: EDUNIT# 08:43 → ER 08:45
DX: J18.1 Lobar pneumonia, unspecified organism (principal); J20.9 Acute bronchitis, unspecified
CPT/HCPCS: 71046; 87636; 94640